=== PATIENT | male | born 1975 | race Hispanic/Latino ===

== ENCOUNTER 2022-03-11 13:31 | Emergency (ER) | payer SELFPAY ==
[~2022-03-11] VITALS: Ht 170.2 cm; Wt 72.6 kg
[2022-03-11] MEDS ORDERED: AMOXICILLIN500 MG PO (13:44)
[2022-03-11] MEDS ORDERED: IBUPROFEN400 MG PO (13:44)
[2022-03-11] MEDS ORDERED: DEBROX15 ML RIGHT EAR (13:44)
== END 2022-03-11 14:01 | disposition home or self-care (01) ==
LOC: FSED 13:43
DX: H66.93 Otitis media, unspecified, bilateral (principal); F17.210 Nicotine dependence, cigarettes, uncomplicated
CPT/HCPCS: 99282